=== PATIENT | female | born 1950 | race Caucasian/White ===

== ENCOUNTER 2016-09-23 20:31 | Emergency (ER) | payer OTHER, MEDICAID ==
[~2016-09-23] VITALS: Ht 160 cm; Wt 45.4 kg
[2016-09-23 20:49] VITALS: BP_SYST 148
--- NOTE | 2016-09-23 20:54 | NUR ---
Triaged. No beds available at this time. Placed in the waiting room.
--- NOTE | 2016-09-23 21:35 | NUR ---
Patient to ER bed 6 to gown for evaluation. Side rails up. Report given to ANNE Lewis.
[2016-09-23] MEDS ORDERED: NACL 0.9% 1,000 ML IV ONE (21:37)
--- NOTE | 2016-09-23 21:38 | NUR ---
ER Dr. MONIQUE at bedside examining patient.
--- NOTE | 2016-09-23 21:40 | NUR ---
PT C/O HEADACHE, GENERALIZED WEAKNESS, BILAT LEG TINGLING, AND EPIGASTRIC PAIN 10/10. A/OX4, AFEBRILE. NO VOMITING OR DIARRHEA. NO SOB OR DISTRESS. SAFETY PRECAUTIONS IN PLACE, WILL CONTINUE [place] MONITOR.
[2016-09-23] MEDS ORDERED: MORPHINE 2 MG/ML INJ. SYRINGE IVP ONE (21:45)
[2016-09-23] MEDS ORDERED: ONDANSETRON HCL 4 MG/2 ML VIAL IVP ONE (21:45)
[2016-09-23 22:13] LABS: BASOPHILS % (AUTO) 0.5 % (0.0-2.0); EOSINOPHILS % (AUTO) 0.5 % (0.0-4.0); HEMATOCRIT 32.4 % (36-48); HEMOGLOBIN 10.9 g/dL (12.0-16.0); LYMPHOCYTES # (AUTO) 1.2 K/uL (1.0-5.5); LYMPHOCYTES % (AUTO) 27.7 % (20.5-51.5); MEAN CORPUSCULAR HEMOGLOBIN 30 pg (27-31); MEAN CORPUSCULAR HGB CONC 34 % (32-36); MEAN CORPUSCULAR VOLUME 90 fL (79.0-98.0); MONOCYTES # (AUTO) 0.3 K/uL (0.0-1.0); MONOCYTES % (AUTO) 7.1 % (1.7-9.3); NEUTROPHILS # (AUTO) 2.7 K/uL (1.8-7.7); NEUTROPHILS % (AUTO) 64.2 % (40.0-70.0); PLATELET COUNT (AUTO) 288 K/uL (130-430); RED BLOOD CELL COUNT(AUTO) 3.62 MIL/uL (4.2-6.2); RED CELL DISTRIBUTION WIDTH 12.5 % (9.0-15.0); WHITE BLOOD COUNT (AUTO) 4.2 K/uL (4.8-10.8)
[2016-09-23 22:19] LABS: INR 1.1 (0.8-1.2); PROTHROMBIN TIME 11.6 SECS (9.5-12.5)
[2016-09-23 22:22] LABS: CALCIUM 8.9 mg/dL (8.4-11.0); CREATININE 0.64 mg/dL (0.55-1.30); POTASSIUM 3.3 mmol/L (3.5-5.1)
[2016-09-23 22:26] LABS: TOTAL BILIRUBIN 0.5 mg/dL (0.0-1.0); TOTAL PROTEIN, SERUM 7.2 g/dL (6.4-8.3)
[2016-09-23] MEDS ORDERED: KCL 40 mEq in D5W 1000 mL 1,000 ML IV ONE (23:45)
[2016-09-24 02:45] VITALS: BP_SYST 109
--- NOTE | 2016-09-24 02:45 | NUR ---
Patient given written and verbal discharge instructions and verbalizes understanding. ER MD DR. MONIQUE discussed with patient the results and treatment provided. Patient in stable condition. ID arm band removed. IV catheter removed intact and dressing applied, no active bleeding. Rx of K-DUR-20 AND TYLENOL given. Patient educated on pain management and to follow up with PMD. Pain Scale 0/10, PT STATES SHE FEELS MUCH BETTER, AMBULATED W/ STEADY GAIT. Opportunity for questions provided and answered.
[2016-09-24 02:59] LABS: BILIRUBIN,URINE NEGATIVE (NEGATIVE); BLOOD, URINE NEGATIVE (NEGATIVE); CLARITY/URINE CLEAR (CLEAR); COLOR,URINE YELLOW (YELLOW); GLUCOSE,URINE NEGATIVE (NEGATIVE); KETONES,URINE NEGATIVE (NEGATIVE); LEUKOCYTE ESTERASE ,URINE NEGATIVE (NEGATIVE); NITRITE, URINE NEGATIVE (NEGATIVE); PROTEIN URINE NEGATIVE (NEGATIVE); UROBILINOGEN,URINE 0.2 (0.2-1.0)
== END 2016-09-24 02:45 | disposition home or self-care (01) ==
LOC: SED 20:31
DX: E87.6 Hypokalemia (principal); M79.606 Pain in leg, unspecified; R03.0 Elevated blood-pressure reading, without diagnosis of hypertension; R10.13 Epigastric pain
CPT/HCPCS: 36415; 80053; 81003; 82150; 83690; 85025; 85610; 85730; 96365; 96366; 96375; 99285; J2270; J2405; J7030; J7060; 99284